=== PATIENT | male | born 1990 | race Two or more races ===

== ENCOUNTER 2018-01-24 14:15 | Emergency (ER) | payer SELFPAY ==
[2018-01-24 14:21] VITALS: BP 153/95; PULSE 66; RESP 16; TEMP 98.1; O2SAT 100
--- NOTE | 2018-01-24 14:43 | ED PDOC ---
HPI: General Adult Time Seen by Provider: 01/24/18 14:23 Chief Complaint (Nursing): Weakness/Neurological Deficit Additional Complaint(s): 28 y/o M c no PMHx p/w facial weakness over half of his face that he noticed since this morning. States he feels some minor numbness of the area as well. Notes that he feels his eyelid is lagging when closing as well. Denies trauma, rash, hiking/camping, lesions, ear pain, numbness or weakness of extremities, speaking difficulty. Past Medical History Vital Signs: Last Vital Signs Temp 98.1 F 01/24/18 14:19 Pulse 66 01/24/18 14:19 Resp 16 01/24/18 14:19 BP 153/95 H 01/24/18 14:19 Pulse Ox 100 01/24/18 14:43 - Family History Family History: States: No Known Family Hx - Home Medications Home Medications: Ambulatory Orders Medication Instructions Recorded Acyclovir 400 mg PO 5XD #34 tablet 01/24/18 Doxycycline Monohydrate 100 mg PO BID #40 capsule 01/24/18 predniSONE [Prednisone] 3 tab PO DAILY #18 tab 01/24/18 - Allergies Allergies/Adverse Reactions: Allergies Allergy/AdvReac Type Severity Reaction Status Date / Time amoxicillin Allergy RASH Verified 01/24/18 14:19 Penicillins Allergy ITCHING Verified 01/24/18 14:19 Review of Systems ROS Statement: Except As Marked, All Systems Reviewed And Found Negative Constitutional: Negative for: Fever Gastrointestinal: Negative for: Vomiting Physical Exam - Physical Exam Comments: Gen: NAD Head: NC Eyes: PERRL ENT: MMM, TMs normal. Neck: Supple CV: Regular rate Neuro: Facial asymmetry with involvement of the forehead. No lesions over face including nose or ears. - ECG O2 Sat by Pulse Oximetry: 100 Medical Decision Making Medical Decision Making: Steroids and acylovir initiated here and prescribed. Advised artificial tears and eye ointment at night. Mother who is Nurse Practitioner strongly requested Doxycycline to patient. I informed patient of side effects and prescribed. Disposition - Clinical Impression Clinical Impression: Crabtree's palsy - Patient ED Disposition Is Patient to be Admitted: No - Disposition Disposition: Routine/Home Disposition Time: 14:41 Condition: STABLE Prescriptions: Acyclovir 400 mg PO 5XD #34 tablet Doxycycline Monohydrate 100 mg PO BID #40 capsule predniSONE [Prednisone] 3 tab PO DAILY #18 tab Instructions: Crabtree's Palsy Forms: [facility] (Burkin[place])
== END 2018-01-24 15:45 | disposition home or self-care (01) ==
LOC: H.ER 14:15
DX: G51.0 Bell's palsy (principal)